=== PATIENT | male | born 1930 | race Caucasian/White ===

== ENCOUNTER → 2017-01-04 | Outpatient (CLI) | payer OTHER, MEDICARE ==
[~2017-01-04] MED LIST: FLOMAX PO; MECLIZINE HCL25 M1 PO; NAPROSYN500 MG PO; PERCOCET 5-3251 EACH PO; ZOCOR; ZOFRAN4 MG PO
== END ==
LOC: RAD 12:05
DX: I77.819 Aortic ectasia, unspecified site (principal); R09.89 Other specified symptoms and signs involving the circulatory and respiratory systems

== ENCOUNTER → 2017-05-10 | Outpatient (CLI) | payer OTHER, MEDICARE ==
[~2017-05-10] MED LIST changes: +AMBIEN 5 MG TABL5 M1 PO; +ASPIR 8181 M1 PO; +CELEBREX 200 M200 M1 PO; +CENTRUM SILVER1 EAC4 PO; +KETOCONAZOLE15 GM TOP; +MEDROLDOSEPACK PO; +OXYCODONE-APAP1 EAC4 PO; +PERCOCET 10-321 EAC1 PO; +TIMOLOL MA0.25 %/52; +TRUSOPT OCUMETE10 ML OPHTHALMIC; +VENTOLIN HFA 1818 GM INH; +VITAMINC500 PO; +XALATAN2.5 ML OPHTHALMIC; +ZOMIG2.5 MG PO
== END ==
LOC: MRI 10:33
DX: S73.191A Other sprain of right hip, initial encounter (principal); E03.9 Hypothyroidism, unspecified; Z98.890 Other specified postprocedural states; X58.XXXA Exposure to other specified factors, initial encounter; Y93.89 Activity, other specified; Y92.89 Other specified places as the place of occurrence of the external cause; Y99.8 Other external cause status

== ENCOUNTER → 2017-05-11 | Outpatient (CLI) | payer OTHER, MEDICARE ==
[~2017-05-11] VITALS: Ht 175.3 cm; Wt 85.3 kg
--- NOTE | ~2017-05-11 | HPC ---
[facility] [address] [place] [address] PAIN MANAGEMENT CONSULTATION Name: CRYSTAL MARI [facility] [id number] Admission: 05/11/17 Attend Phys: Isabelle Morrissey MD Discharge: Date of : 30 Report #: [id number] THIS REPORT FOR: //name// CC: BNEY Morrissey DATE OF SERVICE: 05/11/2017 CHIEF COMPLAINT: Right hip pain. HISTORY OF PRESENT ILLNESS: The patient is an 86-year-old gentleman who has been referred to the pain clinic for evaluation of right hip pain and discomfort. He notes that the pain is involving his right hip. It wakes at night. Notes that his pain is problematic, particularly when he is resting in bed. He is not sure of anything that makes it better. He described it as steady, aching and is at 10 at night. Denies any trauma to this area. Denies any previous hip surgery. Denies any rash in the affected area, has been taking Celebrex 200 mg. ALLERGIES: PENICILLIN, BACITRACIN. MEDICATIONS: Celebrex 200 mg daily, albuterol 2 puffs q.4-6h. p.r.n., Xalatan 0.005 eye drops, dorzolamide ophthalmic, timolol ophthalmic, ketaconazole cream topical, Centrum, multivitamin, aspirin 81 mg, ascorbic acid 500 mg, Zomig 2.5 mg b.i.d., Ambien 5 mg 2 tablets at bedtime, Medrol Dosepak. PAST MEDICAL HISTORY: 1. Dyslipidemia. 2. Glaucoma. 3. Hypothyroidism. 4. Right labyrinth dysfunction in 2014. 5. Ulcers. PAST SURGICAL HISTORY: 1. Right knee surgery. 2. Left knee surgery. 3. Right shoulder surgery secondary to rotator cuff tear. 4. Nasal surgery for deviated septum. 5. Hemorrhoidectomy. 6. Cataract, left eye. 7. Bleb eye surgery on the left. FAMILY HISTORY: Father is . Mother is . Sisters are healthy. Two daughters are healthy. [address] [address] PAIN MANAGEMENT CONSULTATION Name: CRYSTAL MARI Shayy Room #: REG CONI Martinez.#: [id number] Admission: 05/11/17 Attend Phys: Isabelle Morrissey MD Discharge: Date of : 30 Report #: [id number] SOCIAL HISTORY: Denies use of tobacco. REVIEW OF SYSTEMS: Questionnaire in the chart. Wears glasses, glaucoma, hearing loss, frequent urination. LABORATORY DATA: Hip and pelvis, right performed 05/02/2017. AP pelvis, unilateral hip, 2/3 views, visualized pelvis and proximal femur appear normal without fracture, periosteal retraction or osteolytic/osteoblastic lesion. There is mild degenerative narrowing of the right hip joint. No soft tissue abnormality is apparent. Impression, only mild degenerative changes seen. MRI on 05/10/2017 for acute on side of right hip pain reveals: 1. The bone marrow signal intensity is normal. There is no evidence of avascular necrosis or an occult stress reaction/fracture. 2. Sacroiliac joints and pubic symphysis are intact. 3. The lower lumbar spine is unremarkable. 4. The hip joints are intact bilaterally. There is a physiological amount of joint fluid. There is a degenerative tear of the superior and anterior labrum. 5. The gluteal medius and minimus tendons are intact bilaterally. There is no evidence for tendonitis or tendinosis. The tensor fascia laurence is also unremarkable. There is no evidence for greater trochanteric bursitis. The hamstring tendons are intact bilaterally. 6. The iliopsoas tendon are unremarkable. The muscle signal intensity is normal. 7. The course of the sciatic nerve along the posterior acetabulum and visualized field of view is unremarkable. No masses or mass effect is identified. The visual intraperitoneal structures are unremarkable. Impression, degenerative labial tear, otherwise unremarkable MRI of the right hip. PHYSICAL EXAMINATION: VITAL SIGNS: Blood pressure is 138/81, pulse 63, respiratory rate 20, room air O2 saturation is 100, height 5 feet 9 inches, weight 188 pounds, BMI is 27.8. GENERAL: No acute distress. The patient does complain of pain and discomfort involving the right groin area. EYES: Conjunctiva normal. No icterus. ENT: Normal ears. Nose normal. Mucous membranes moist. HEAD: Atraumatic. NECK: Supple. No masses or adenopathy. LUNGS: Clear, breath sounds normal. CARDIOVASCULAR: Regular rate and rhythm. ABDOMEN: Nontender. EXTREMITIES: He complains of pain and discomfort in the right lower hip area. Moves all extremities. Muscle strength appears to be 5/5 in the upper extremity and in the lower extremity. No clubbing or cyanosis. NEUROLOGIC: Normal cognition, oriented x 3, normal speech. Palpation in the area of the right groin does reproduce a component of the patient's pain. No [facility] [address] [place] [address] PAIN MANAGEMENT CONSULTATION Name: CRYSTAL MARI Room #: REG CONI Joaquin#: [id number] Admission: 05/11/17 Attend Phys: Isabelle Morrissey MD Discharge: Date of : 30 Report #: [id number] significant pain or discomfort in the area of the greater trochanteric bursa. Internal and external rotation of the hip indicates some pain and discomfort with this. IMPRESSION: 1. 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 2. Glaucoma. 3. Hypothyroidism. 4. Dyslipidemia. RECOMMENDATIONS: We discussed treatment options with the patient. Given that he is having some pain and discomfort in the hip joint. We will proceed with a hip joint injection. He indicates that he did undergo an injection for bursitis. Pain continues despite that treatment course. We have explained the possible complications of an injection in the hip, which could include infection, increased muscle soreness, bleeding, worsening of pain and infection. He elects to proceed. PROCEDURE NOTE: The patient was placed in the supine position. Fluoroscopy was used to image the right hip. This area had been sterilely prepped with a Betadine solution and allowed to dry. A 20-gauge spinal needle was then directed into the area near the acetabulum. After the area had been prepped, injected with 0.25% bupivacaine and upon appropriate placement of needle, contrast media was then injected and the contrast surrounded the head of femur. A total of 40 mg triamcinolone and 5 mL of 0.25% bupivacaine was injected. The patient did not have any numbness in his lower extremity. There was no extravasation of the local to the femoral nerve. The patient was then taken to the recovery room where he remained for an appropriate amount of time. He will follow up in the near future. We would like to thank you for letting us participate in his care. We hope he continues to improve. <ELECTRONICALLY SIGNED> By: Isabelle Morrissey MD 05/23/17 [id number] Isabelle Morrissey MD /[facility]
[2017-05-11 13:25] VITALS: BP 138/81
== END | disposition home or self-care (01) ==
LOC: PAIN 07:18
DX: M24.151 Other articular cartilage disorders, right hip (principal); H40.9 Unspecified glaucoma; E03.9 Hypothyroidism, unspecified; E78.5 Hyperlipidemia, unspecified; Z98.42 Cataract extraction status, left eye; Z98.890 Other specified postprocedural states; Z79.82 Long term (current) use of aspirin; Z79.899 Other long term (current) drug therapy; Z88.0 Allergy status to penicillin; Z88.8 Allergy status to other drugs, medicaments and biological substances; Z79.891 Long term (current) use of opiate analgesic